=== PATIENT | female | born 1945 | race Caucasian/White ===

== ENCOUNTER → 2022-07-19 09:50 | Outpatient (CLI) | payer MEDICARE, SELFPAY ==
--- NOTE | ~2022-07-19 | XR_ITS ---
EXAMINATION: XR knee LT 3V DATE: 07/19/2022 10:01 INDICATION: Left knee pain TECHNIQUE: Three views of the left knee were obtained. COMPARISON: None. FINDINGS: Alignment is normal. No fracture or osteochondral lesion. There is mild tricompartmental os teoarthritis characterized by marginal osteophytes. No joint effusion/synovitis. Soft tissues are un remarkable. IMPRESSION: 1. Osteoarthritis without acute osseous abnormality. Reviewed, dictated and finalized at location B. MA[employer]
== END ==
PROVIDERS: PCP Internal Medicine; Visit Provider Nurse Practitioner
DX: M17.12 Unilateral primary osteoarthritis, left knee (principal)
CPT/HCPCS: 73562

== ENCOUNTER → 2023-07-23 12:13 | Outpatient (CLI) | payer MEDICARE, SELFPAY ==
--- NOTE | ~2023-07-23 | DEXA_ITS ---
Bone Density Report Name: OCTAVIANO TSAI Age: 77 Sex: Female Ethnicity: White Date of : 1945 Indication: osteopenia; height loss; postmenopausal Referring Provider: Maylin Delgado Study: Bone densitometry was performed. Exam Date: July 23, 2023 Accession number: [id number] Bone Density: Region BMD T-score Z-score Classification AP Spine (L1-L4) 0.928 -1.1 1.4 Osteopenia Femoral Neck (Left) 0.558 -2.6 -0.5 Osteoporosis Total Hip (Left) 0.678 -2.2 -0.3 Osteopenia Femoral Neck (Right) 0.554 -2.7 -0.5 Osteoporosis Total Hip (Right) 0.756 -1.5 0.3 Osteopenia Total Hip Mean 0.717 -1.9 0.0 Osteopenia World Health Organization criteria for BMD impression classify patients as: Normal (T-score at or above -1.0), Osteopenia (T-score between -1.0 and -2.5), or Osteoporosis (T-score at or below -2.5). 10-year Fracture Risk: FRAX not reported because: Some T-score for Spine Total or Hip Total or Femoral Neck at or below -2.5 Previous Exams: Region Exam Age BMD T-score BMD Change BMD Change Date g/cm2 vs Baseline vs Previous AP Spine(L1-L4) 07/23/2023 77 0.928 -1.1 -0.139 -0.040 04/13/2018 72 0.967 -0.7 -0.100 0.037 12/28/2004 59 0.931 -1.1 -0.136 -0.136 08/06/2002 56 1.067 0.2 Total Hip(Left) 07/23/2023 77 0.678 -2.2 -0.235 -0.051 04/13/2018 72 0.729 -1.7 -0.184 -0.171 12/28/2004 59 0.900 -0.3 -0.013 -0.013 08/06/2002 56 0.912 -0.2 Total Hip(Right) 07/23/2023 77 0.756 -1.5 -0.101 -0.015 04/13/2018 72 0.770 -1.4 -0.086 -0.082 12/28/2004 59 0.852 -0.7 -0.004 -0.004 08/06/2002 56 0.857 -0.7 *Denotes significance at 95% confidence level, LSC for AP Spine = 0.022 g/cm2, LSC for Total Hip = 0.027 g/cm2 Clinical Information Provided by Patient: Has used the following medications: Vitamin D Patient maximum height was 66 Menopause Age: 52 Drinks caffeinated beverages Onset of menses at age 15 Number of children 4 Impression: The patient has osteoporosis, based on the Right Femoral Neck T-score. No significant bone loss was observed. Discussion: INCREASED RISK OF FRACTURE. BONE DENSITY IS UNDESIRABLY LOW AT ONE OR MORE SKELETAL SITES, CONSISTENT WITH POSTMENOPAUSAL OSTEOPOROSIS. This patient's lowest T-score meets the World Health Organ
== END ==
PROVIDERS: PCP Nurse Practitioner; Visit Provider Nurse Practitioner
DX: Z78.0 Asymptomatic menopausal state (principal); M85.89 Other specified disorders of bone density and structure, multiple sites; M81.0 Age-related osteoporosis without current pathological fracture
CPT/HCPCS: 77080